=== PATIENT | female | born 1990 | race Caucasian/White ===

== ENCOUNTER 2016-10-07 18:52 | Observation (INO) | payer OTHER, MEDICAID ==
[2017-02-17] MEDS ORDERED: IBUPROFEN800 M1 PO (10:02)
== END 2016-10-07 20:37 ==
LOC: LDR 18:52
PROVIDERS: ADMIT Obstetrics & Gynecology
DX: O36.8120 Decreased fetal movements, second trimester, not applicable or unspecified (principal); Z3A.22 22 weeks gestation of pregnancy

== ENCOUNTER 2017-01-14 22:26 | Observation (INO) | payer OTHER, MEDICAID ==
[2017-01-14 22:47] LABS: URINE BILIRUBIN NEGATIVE (NEG); URINE BLOOD NEGATIVE (NEG); URINE GLUCOSE (UA) SMALL (NEG); URINE KETONE NEGATIVE (NEG); URINE LEUKOCYTE ESTERASE POSITIVE (NEG); URINE NITRITE NEGATIVE (NEG); URINE PROTEIN NEGATIVE (NEG); URINE SPECIFIC GRAVITY 1.005 (1.003-1.030)
[2017-01-14 22:50] LABS: URINE APPEARANCE CLEAR; URINE COLOR YELLOW
[2017-01-14] MEDS ORDERED: VALTREX1000 M1 (22:52)
[2017-01-14] MEDS ORDERED: PRENA1 CHEW TA1.4 M1 (22:52)
[2017-01-14 23:14] LABS: URINE BACTERIA 1+; URINE EPITHELIAL CELLS 0 /[HPF] (0-10); URINE RBC 0 /[HPF] (0-5)
[2017-02-17] MEDS ORDERED: IBUPROFEN800 M1 PO (10:02)
== END 2017-01-15 00:10 ==
LOC: LDR 22:26
PROVIDERS: ADMIT Obstetrics & Gynecology
DX: O99.89 Other specified diseases and conditions complicating pregnancy, childbirth and the puerperium (principal); R10.9 Unspecified abdominal pain; Z3A.36 36 weeks gestation of pregnancy; O99.513 Diseases of the respiratory system complicating pregnancy, third trimester; J45.990 Exercise induced bronchospasm; O99.333 Smoking (tobacco) complicating pregnancy, third trimester; F17.210 Nicotine dependence, cigarettes, uncomplicated; Z79.899 Other long term (current) drug therapy